=== PATIENT | female | born 1970 | race Caucasian/White ===

== ENCOUNTER → 2022-04-07 10:57 | Outpatient (BNVA) | payer BC, SELFPAY | PROVIDERS: PCP Physician Assistant Medical; Visit Provider Hospitalist | DX: J45.909 Unspecified asthma, uncomplicated (principal); Z91.048 Other nonmedicinal substance allergy status | CPT/HCPCS: 94640; 96372; J2930 ==

== ENCOUNTER 2022-04-20 15:36 | Outpatient (REF) | payer BC, SELFPAY ==
[2022-04-20 15:53] LABS: MANUAL DIFF FLAG NO
[2022-04-20 16:19] LABS: Basophils Percent Auto 0.8 % (0-2); Eosinophils Absolute Auto 0.1 X10*3/uL (0.0-0.4); Eosinophils Percent Auto 1.7 % (0-4); Hematocrit 41.5 % (37.0-47.0); Hemoglobin 13.7 g/dl (12.0-16.0); Imm Gran Abs Auto 0.01 X10*3/uL (0.00-0.03); Imm Gran Pct Auto 0.2 % (0.0-0.4); Lymphocytes Absolute Auto 1.4 X10*3/uL (1.2-4.9); Lymphocytes Percent Auto 29.2 % (20-40); Mean Corpuscular Hemoglobin 29.2 pg (27.0-33.0); Mean Corpuscular Volume 88.5 fL (80.0-98.0); Mean Platelet Volume 10.6 fL (9.4-12.3); Monocytes Absolute Auto 0.4 X10*3/uL (0.1-1.2); Monocytes Percent Auto 7.4 % (2-11); Neutrophils Absolute Auto 2.9 x10*3/uL (2.0-8.3); Neutrophils Percent Auto 60.7 % (45-73); Platelet Count 184 X10*3/uL (160-400); Red Blood Count 4.69 X10*6/uL (4.20-5.50); Red Cell Distribution Width 13.1 % (11.0-16.0); White Blood Count 4.7 X10*3/uL (4.8-10.8)
[2022-04-20 16:55] LABS: Erythrocyte Sedimentation Rate 3 MM/HR (0-20)
[2022-04-22 04:44] LABS: Immunoglobulin E 12 kU/L (<OR=114)
[2022-04-22 16:44] LABS: IgA 88 mg/dL (47-310); IgG 831 mg/dL (600-1640); IgM 96 mg/dL (50-300)
[2022-04-29 16:33] LABS: Asperg fumigatus Precip Abs NEGATIVE (NEGATIVE); Micropoly faeni Abs NEGATIVE (NEGATIVE); Pigeon serum Abs NEGATIVE (NEGATIVE); Saccharo pora viridis Abs NEGATIVE (NEGATIVE); Thermo candidus Abs NEGATIVE (NEGATIVE); Thermoa vulgaris #1 NEGATIVE (NEGATIVE)
== END 2022-04-20 15:37 | disposition home or self-care (01) ==
LOC: HO.LAB 15:36
PROVIDERS: Visit Provider Hospitalist
DX: J45.909 Unspecified asthma, uncomplicated (principal); R91.8 Other nonspecific abnormal finding of lung field; Z91.048 Other nonmedicinal substance allergy status
CPT/HCPCS: 36415; 82784; 82785; 85025; 85652; 86331; 86606; 86609

== ENCOUNTER → 2022-04-30 08:45 | Outpatient (BNVA) | payer BC, SELFPAY | PROVIDERS: PCP Physician Assistant Medical; Visit Provider Hospitalist | DX: J45.909 Unspecified asthma, uncomplicated (principal); Z91.048 Other nonmedicinal substance allergy status ==

== ENCOUNTER 2022-05-01 07:44 | Outpatient (REF) | payer BC, SELFPAY ==
--- NOTE | ~2022-05-01 | XR_ITS ---
EXAMINATION: XR chest 2V CLINICAL INFORMATION: Reason for Exam R07.89 - Other chest pain COMPARISON: Chest radiograph 01/18/2019 TECHNIQUE: 2 views of the chest FINDINGS: Clear lungs. No pneumothorax or pleural effusion. Normal cardiomediastinal silhouette. XR/XR chest 2V Impression: * Clear lungs.
--- NOTE | 2022-05-01 07:50 | ECG_ITS ---
Test Reason : chronic obstructive pulmonary disease cp Blood Pressure : / mmHG Vent. Rate : 083 BPM Atrial Rate : 083 BPM P-R Int : 142 ms QRS Dur : 082 ms QT Int : 360 ms P-R-T Axes : -47 077 066 degrees QTc Int : 423 ms Unusual P axis, possible ectopic atrial rhythm Abnormal ECG No previous ECGs available Referred By: Balwinder Greenfield Electronically Signed By:ANTHONY CLEMENT MD
== END 2022-05-01 07:45 | disposition home or self-care (01) ==
LOC: HO.XRAY 07:44
PROVIDERS: PCP Physician Assistant Medical; Visit Provider Hospitalist
DX: R07.89 Other chest pain (principal); J44.9 Chronic obstructive pulmonary disease, unspecified
CPT/HCPCS: 71046; 93005

== ENCOUNTER → 2022-07-16 13:52 | Outpatient (BNVA) | payer BC, SELFPAY | PROVIDERS: PCP Physician Assistant Medical; Visit Provider Hospitalist | DX: J45.909 Unspecified asthma, uncomplicated (principal); J40 Bronchitis, not specified as acute or chronic; Z91.048 Other nonmedicinal substance allergy status; R07.89 Other chest pain ==

== ENCOUNTER 2023-01-19 13:48 | Outpatient (AMB) | payer BC, SELFPAY ==
[2023-01-19 14:08] VITALS: PULSE 64; O2SAT 98; BMI 20.7
--- NOTE | 2023-01-19 14:08 | MHC.OFFVIS ---
Intake Vital Signs 01/19/23 14:08 Height 5 ft 6 in Weight 128 lb BMI 20.7 Pulse 64 Pulse Source Pulse Oximeter Pulse Oximetry (%) 98 Oxygen Delivery Method Room Air Intake Visit Reasons: cough/lung pain Manager Nc Required: No Allergies metronidazole [Flagyl] Allergy (Unknown, Verified 01/19/23 14:10) Rash Sulfa Drugs Allergy (Unknown, Uncoded 01/19/23 14:10) Fatigued HPI HPI Comments History of Present Illness Details The patient is a 52-year-old woman with a known history of hyper sensitivity re actions in addition to significant mold allergies who had been in her usual state health until recently a few weeks ago when she started developing worsening shortness of breath. Apparently she had to go to a different building to work at. 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 Ultimately the 1st day she felt some chest tightness and was able to feel better the next day. Subsequent the 2nd day that she when she fell the chest tightness again and I did not get any better. She became worse with significant coughing shortness of breath and chest discomfort. She felt a burning sensation in the left chest area. Therefore she went to the ER at [facility]. There she had blood work which was reassuring. In addition to that she had a chest x-ray that was abnormal and then followed up with a CT scan of the chest demonstrating significant bronchitis and mucus plugging primarily at the bases left more than right. No significant airspace disease appreciated. The patient was placed on prednisone without any significant improvement in addition to that she was given a nebulizer with albuterol. She was noticing that after the pedal she was getting worse sitting of the symptoms for the next few hours. In view of not feeling better she was referred to Pulmonary. The patient on examination was significant rhonchorous and wheezing. We did provide with Xopenex treatment which she 10 to tolerate without the adverse effects she was feeling before will phone the albuterol which is reassuring. Hopefully she does not develop them later on. In addition to that she is already on 40 mg of prednisone. She definitely needs more medications so she will receive Solu-Medrol 125 mg IM. We were able to also try to get some sputum. She did also mention that the sputum is difficult to come out but she has noted some blood in it. From the sputum sample that we provided in the office I do not appreciate any blood which is reassuring. 04/30/2022 the patient is here for a pulmonary follow-up visit. Overall she is feeling better from a respiratory status. Denies any wheezing or shortness of breath. She completed all the medicines. Unfortunately she started developing some epigastric discomfort and some chest discomfort. She felt sharp. Denied pleuritic component now is switch over to oral a burning sensation. Primarily on the upper substernal chest area. She does have some reproducible chest discomfort but she feels this different. Her burning sensation does radiate to the back. She denies any shortness of breath along with. She does have a history of cardiac disease in the family. The patient has not had recent EKG. Explained to her that she has been a lot of prednisone and this ultimately can be resulting in some esophagitis and reflux related disease. Therefore will start her omeprazole but also request an EKG. She is also going to follow up with GI. We did review all her blood work. No significant allergic reactions noted based on the normal IgE and a normal eosinophils. Her hypersensitive panel is also negative. Will set up a follow-up with Allergy immunology to assess her mold allergies that she had noted in the past. 01/19/2023 the patient is here for a sick visit. Apparently she was in her usual state health until the last few weeks when she started developing URI like symptoms. She started developing chest congestion. She went to an urgent care actually 3 days in a row because she had significant respiratory complaints. She was given a course of azithromycin. Subsequently after that she went back to her primary care doctor who gave her a course of doxycycline. After a days she is not really feeling significantly better. She is been complaining of pleuritic discomfort. She is affecting her right mid thoracic area although she does have some also some discomfort on the other side. Sometimes is even hard to take a deep breath and a cough because I is moderate in severity. The pain feels sharp. She has never had symptoms like this before. She denies any swelling of the extremities although she has never had any blood clots history either. Will go ahead and request blood work including a D-dimer at this time. It appears that her symptoms are more pleurisy. She did have a chest x-ray done which I personally reviewed demonstrating no acute issues that was done at [facility]. Therefore will have her start on low-dose course of prednisone and she will complete 8 days or doxycycline. The patient also has cough medications. If the patient is no better will request a CT scan of the chest discomfort. [facility] Medical History (Updated 01/19/23 @ 19:15 by Balwinder Greenfield MD) Chest discomfort Allergy to mold Bronchitis Asthma Social History (Updated 04/07/22 @ 11:06 by VALARIE Naik) Patient Tobacco Use Status: Never used Tobacco Review of Systems Const Reports fatigue and Denies fever(s) Eyes Denies change in vision ENT Reports nasal congestion Card Reports chest pain, Denies dyspnea and Denies dyspnea on exertion Resp Denies chest congestion, Reports cough, Denies hemoptysis, Reports pain on inspiration, Reports pain with cough, Denies dyspnea, Denies dyspnea on exertion, Denies stridor and Denies wheezing GI Denies abdominal pain Musc Reports no additional complaints Skin/Breast Denies rash Neuro Reports no additional complaints Endo Reports fatigue Gen/Lymph Denies lymphadenopathy Aller/Immun Denies wheezing Physical Exam Vital Signs: Last Vital Signs Pulse 64 01/19/23 14:08 Pulse Ox 98 01/19/23 14:08 Oxygen Delivery Method Room Air 01/19/23 14:08 BMI result Body Mass Index 20.7 Const General: comfortable HEENT Head: Yes normocephalic Neck Neck: Yes supple Chest Chest palpation & inspection: normal inspection of the chest Resp Effort & Inspection: normal respiratory effort Auscultation: no crackles, no rales, no rhonchi, no wheezes and diminished lung sounds Cardio Rate: regular rate Rhythm: regular rhythm Heart sounds: S1 normal heart sound present and S2 normal heart sound present GI Palpation (GI): Soft to palpation Skin General skin exam: no rashes or lesions noted Extrem General: Yes no clubbing, cyanosis or edema Assessment & Plan Assessment & Plan (1) Chest discomfort: Comment: pleuritic chest pain L>>R Code(s): R07.89 - Other chest pain (2) Asthma: Code(s): J45.909 - Unspecified asthma, uncomplicated Qualifiers: Asthma complication type: uncomplicated Asthma persistence: intermittent Asthma severity: mild Qualified Code(s): J45.20 - Mild intermittent asthma, uncomplicated (3) Bronchitis: Code(s): J40 - Bronchitis, not specified as acute or chronic (4) Allergy to mold: Code(s): Z91.048 - Other nonmedicinal substance allergy status Plan complete Doxycycline x 8 days start prednisone taper Bloodwork including ddimer If CP persistent will require a CT chest Nebs with xopenex as needed Acapella valve for CPT as needed F/U in 2-3 months depending on response to therapy Orders: Orders Complete Blood Count Auto Diff Today R07.89 - Other chest pain Erythrocyte Sedimentation Rate Today R07.89 - Other chest pain D Dimer High Sensitivity Today R07.89 - Other chest pain Basic Metabolic Panel Today R07.89 - Other chest pain Medications: New prednisone PO daily; Take 2 tabs daily x 5 days, then 1 tab daily x 5 days 10 days 15 tabs 0RF Coding Level of Care Code Est Pt Level 4 (05205) Diagnoses Chest discomfort R07.89 Mild intermittent asthma without complication J45.20 Asthma complication type: uncomplicated Asthma persistence: intermittent Asthma severity: mild Bronchitis J40 Allergy to mold Z91.048 Time Spent (min) 17
== END 2023-01-19 14:42 | disposition home or self-care (01) ==
PROVIDERS: PCP Physician Assistant Medical; Visit Provider Hospitalist
DX: R07.89 Other chest pain (principal); J45.20 Mild intermittent asthma, uncomplicated; J40 Bronchitis, not specified as acute or chronic; Z91.048 Other nonmedicinal substance allergy status
CPT/HCPCS: 99214

== ENCOUNTER 2023-01-19 13:48 | Outpatient (REF) | payer BC, SELFPAY ==
[2023-01-19 14:56] LABS: MANUAL DIFF FLAG NO
[2023-01-19 15:48] LABS: Basophils Absolute Auto 0.1 X10*3/uL (0.0-0.2); Basophils Percent Auto 0.9 % (0-2); Eosinophils Absolute Auto 0.1 X10*3/uL (0.0-0.4); Eosinophils Percent Auto 2.4 % (0-4); Hematocrit 40.3 % (37.0-47.0); Hemoglobin 13.2 g/dl (12.0-16.0); Imm Gran Abs Auto 0.01 X10*3/uL (0.00-0.03); Imm Gran Pct Auto 0.2 % (0.0-0.4); Lymphocytes Absolute Auto 1.8 X10*3/uL (1.2-4.9); Lymphocytes Percent Auto 33.3 % (20-40); Mean Corpuscular HGB Conc 32.8 g/dl (31.0-35.0); Mean Corpuscular Hemoglobin 29.1 pg (27.0-33.0); Mean Platelet Volume 11.2 fL (9.4-12.3); Monocytes Absolute Auto 0.4 X10*3/uL (0.1-1.2); Monocytes Percent Auto 7.1 % (2-11); Neutrophils Percent Auto 56.1 % (45-73); Platelet Count 202 X10*3/uL (160-400); Red Blood Count 4.53 X10*6/uL (4.20-5.50); Red Cell Distribution Width 12.8 % (11.0-16.0); White Blood Count 5.4 X10*3/uL (4.8-10.8)
[2023-01-19 15:55] LABS: D Dimer High Sensitivity < 150 NG/ML
[2023-01-19 16:27] LABS: Erythrocyte Sedimentation Rate 5 MM/HR (0-20)
[2023-01-19 16:48] LABS: Anion Gap 12 (12-20); Blood Urea Nitrogen 13 mg/dL (9-16); Calcium 9.3 mg/dL (8.4-10.2); Carbon Dioxide 25 mmol/L (22-29); Chloride 108 mmol/L (96-108); Estimated Glomerular Filt Rate > 60; Glucose Random 77 mg/dL (60-115); Potassium 4.5 mmol/L (3.3-5.1); Sodium 140 mmol/L (135-145)
== END 2023-01-19 13:49 | disposition home or self-care (01) ==
LOC: HO.LAB 13:48
PROVIDERS: PCP Physician Assistant Medical; Visit Provider Hospitalist
DX: R07.89 Other chest pain (principal); J45.20 Mild intermittent asthma, uncomplicated; Z91.048 Other nonmedicinal substance allergy status
CPT/HCPCS: 36415; 80048; 85025; 85379; 85652

== ENCOUNTER 2023-11-18 08:20 | Outpatient (AMB) | payer BC, SELFPAY ==
[2023-11-18 08:28] VITALS: BP 139/92; PULSE 91; O2SAT 100; BMI 20.5
--- NOTE | 2023-11-18 08:28 | MHC.OFFVIS ---
Vital Signs 11/18/23 08:28 Height 5 ft 6 in Weight 127 lb BMI 20.5 BP 139/92 H Blood Pressure Location Rt brachial Position Sitting Pulse 91 Pulse Source Pulse Oximeter Pulse Oximetry (%) 100 Oxygen Delivery Method Room Air Intake Visit Reasons: Rt arm pain/numbness after contrast Intake Note: Pain today 4/10 Grain Operator Required: No Accompanied by: Self / Same As Patient Allergies metronidazole [Flagyl] Allergy (Unknown, Verified 11/18/23 08:28) Rash Sulfa Drugs Allergy (Unknown, Uncoded 01/19/23 14:10) Fatigued HPI Comments Details: Marcia is a very pleasant 53-year-old female who presents to the office today for evaluation management of her right arm pain Patient underwent MRI with IV contrast 2 months ago with repeat MRI with contrast 1 month ago After the 1st MRI she developed pain, numbness, tingling and hot/cold sensations of the right arm from the elbow into the hand. pain significantly worsened after the 2nd MRI with contrast For the MRI an IV was inserted in the right antecubital, she was positioned prone for 40 minutes where pressure was placed directly on IV and her antecubital fossa After the MRI was completed she noticed the alteration in sensation and aching pain in her right elbow Pain today is rated as a 4/10, constant Pain at Olecranon with radiation down the arm across the top of the hand and up the medial aspect of the arm to the axilla Denies pain in the neck Patient has been taking ibuprofen without improvement of her symptoms. Heat helps for a short amount of time. She has not tried physical therapy, chiropractor, acupuncture, massage or injections. She was given gabapentin by her primary care doctor but she has it started. She read the insert and is nervous because of all the potential side effects therefore she has decided to manage the pain without prescription medication. She states it is tolerable at this time and she will consider starting the medication if he gets worse. In terms of muscle damage condition is described as aching, tingling, dull, numb, pins and needles Pain is negatively impacting patient's general activity, sleep PFSH Medical History (Updated 11/18/23 @ 09:13 by Swathi Echevarria) Liver lesion History of breast cancer Chest discomfort Allergy to mold Bronchitis Asthma Surgical History (Updated 11/18/23 @ 08:47 by Swathi Echevarria) H/O myringotomy History of lumpectomy of left breast Social History (Updated 04/07/22 @ 11:06 by VALARIE Naik) Patient Tobacco Use Status: Never used Tobacco Review of Systems Const All systems reviewed & are unremarkable except as noted in HPI and below Physical Exam Vital Signs: Last Vital Signs Pulse 91 11/18/23 08:28 BP 139/92 H 11/18/23 08:28 Pulse Ox 100 11/18/23 08:28 Oxygen Delivery Method Room Air 11/18/23 08:28 BMI result Body Mass Index 20.5 General: awake, alert, oriented. Answers questions appropriately. Fully engaged in examination. Skin: warm, dry, intact HEENT: Normocephalic. Hearing intact. Cardiac: External chest normal in appearance. Respiratory: No cough, audible wheezing or stridor. Abdomen: without gross distension. MS: No obvious swelling or deformities. Nontender midline cervical vertebrae cervical paraspinal muscles. Cervical range motion intact Right arm: Tenderness to palpation over right olecranon. Light touch sensation intact. Bilateral upper extremity strength equal, 5/5. Range of motion intact. No muscle atrophy. No skin changes. No hair loss Neurological: Oriented to person, place, time and situation. Thought process intact. No gait abnormalities appreciated. Psychiatric: Appropriate mood and affect. Good judgment and insight. Assessment & Plan Assessment & Plan (1) Arm paresthesia, right: Code(s): R20.2 - Paresthesia of skin Category: Medical Plan Marcia is a very pleasant 53-year-old female who presented to the office today for evaluation and management of her right arm paresthesia EMG ordered for evaluation Continue with plan for gabapentin as prescribed by PCP if pain worsens All questions and concerns were answered, patient agrees with the plan. Follow up after EMG, sooner if needed Orders: Orders NE electromyogram (EMG) Today R20.2 - Paresthesia of skin Coding Level of Care Code New Pt Level 4 (53621) Complex EM visit Add On G2211 Diagnoses Arm paresthesia, right R20.2
== END 2023-11-18 08:56 | disposition home or self-care (01) ==
PROVIDERS: PCP Internal Medicine; Visit Provider Registered Nurse Emergency
DX: R20.2 Paresthesia of skin (principal)
CPT/HCPCS: 99204

== ENCOUNTER → 2023-11-18 08:20 | Outpatient (BNVA) | payer BC, SELFPAY | PROVIDERS: PCP Internal Medicine; Visit Provider Registered Nurse Emergency ==

== ENCOUNTER 2024-02-22 06:12 | Outpatient (REF) | payer BC, SELFPAY ==
--- NOTE | 2024-02-22 05:48 | EMG_ITS ---
Right median and ulnar motor and sensory studies were performed. Right radial sensory and median and lateral antecubital brachial sensory studies were performed and paraspinal muscles were tested with a needle. IMPRESSION: 1. Mild right median neuropathy across carpal tunnel. 2. Mild right ulnar nerve slowing across elbow. MD ALVARO David/SUMANTH / [id number]
--- OUTSIDE RECORDS SUMMARY | 2024-02-22 06:16 | XMS_ITS | Data Portability ---
Author Organization [facility], [address] [place] [address] Care Team Providers Care Intermediate Manager Name Role Phone JARVIS MOYA Primary Care Provider Assessment No assessment recorded. Plan of Treatment Reminders Order Date Submit Date Provider Last Modified By Organization Details Last Modified Time Details Appointments None recorded. Lab rapid SARS CoV 2 Ag, QL IA, respiratory specimen 2022 023 [facility], [address] [place] [address], [address], 3 09:20:27 rapid strep group A, throat 2022 023 [email or web address] [facility], [address] [place] [address], [address], 3 09:20:27 urinalysis, dipstick 2022 023 [email or web address], [address] [place] [address], [address], 3 09:40:41 test, urine 2022 023 [email or web address], [address] [place] [address], [address], 3 09:40:42 culture, urine 2022 023 [place] [facility], [address] [place], [address], 3 20:06:21 vaginal pathogens panel, ORION+probe, vaginal fluid 2022 023 [place] [facility] ([facility]), [address] [place], [address], 3 10:11:21 Referral None recorded. Procedures None recorded. Surgeries None recorded. Imaging None recorded. Medication Orders amoxicillin 875 mg-potassiu m clavulanate 125 mg tablet 2022 023 [id number] [address] [place], [address], 3 09:03:10 loratadine 10 mg tablet 2022 023 [id number] [address] [place], [address], 3 09:03:14 albuterol sulfate 2.5 mg/3 mL (0.083 %) solution for nebulizatio n 2022 023 [email or web address] Not available 3 09:03:09 ipratropium bromide 0.02 % solution for inhalation 2022 023 [email or web address] Not available 3 09:03:04 Macrobid 100 mg capsule 2022 023 [id number] [address] [place], [address], 3 09:40:41 Patient TargetsNo targets recorded. Patient Instructions Encounter Date Encounter Id Patient Instructions Last Modified By Organization Details Last Modified Time 03/14/2022 [id number] Acute bronchitis is a common clinical condition characterized by an acute onset but persistent cough, with or without sputum production. It is typically self-limited, resolving within one to three weeks. Symptoms result from inflammation of the lower respiratory tract and are most frequently due to viral infection. Treatment is focused on patient education and supportive care. Antibiotics are not needed for the great majority of patients with acute bronchitis but are greatly overused for this condition. Reducing antibiotic use for acute bronchitis is a national and international health care priority. In most patients, the cough persists for 1 to 3 weeks, with a average duration of 18 days. The cough may be associated with either purulent or nonpurulent sputum production The presence of purulent sputum is a nonspecific finding and does not appear to be predictive of bacterial infection or that antibiotics are needed. For the great majority of patients, use of antibiotics does not hasten recovery or prevent complications but puts patients at increased risk of adverse effects including potentially severe complications such as Clostridioides difficile infection and anaphylaxis. Non-Pharmacological treatment for coughin. Throat lozenges 2. Hot tea 3. Honey 4. Smoking cessation 5. Avoidance of secondhand smoke. Pharmacological Treatment: 1. Robatussin or Guafenasin 2. Antihistamines 3. Dextromethoraphen I would plan on being seen again if any of the following symptoms develop: 1. Fever (100.5) 2. Shortness of breath 3. Wheezing 4. Worsening Cough. I would go to the ER if you develop: 1. Severe Shortness of breath 2. Chest Pain 3. Wheezing 4. Coughing up Blood [email or web address] Not available 03/14/2022 10:14:56 08/28/2022 [id number] bacterial vagino sis: care instructions Not available 08/28/2022 09:40:39 We recommend you get a repeat urinalysis in 2 weeks to ensure that any abnormalities have resolved. If urine abnormalities persist, you will likely need further testing or treatment. We will contact you within 3 to 5 days with the results of your lab test. If you have not heard back from us within that time frame, please feel free to contact our office regarding your results. Go to the Emergency Department immediately if your symptoms worsen or if you develop new symptoms that concern you. Drink plenty of fluids You should follow-up with your PCP in 4-5 days, or at any time if your condition does not improve or worsens. Any acute change should prompt a visit to the nearest Emergency Department. [email or web address] Not available 08/28/2022 09:40:02 -Reviewed the va rious causes of vaginal problems. Reviewed good vulvar/vaginal hygiene and ways to reduce symptoms. Advised to call if treatment is not helpful or if symptoms persist or recur. -Do not wear tight fitting clothes. Do not have sex until your symptoms are gone. Do not use Douches or other irritating products in your vagina as this can make the symptoms worse. - Use condoms for all sexual activity. - If you develop severe back pain or pelvic/abdominal with nausea, fevers, and vomiting you need to go to Emergency room immediately - I recommend complete treatment fully before engaging in intercourse, if you are waiting for a STD test I do not recommend engaging in intercourse until test results have returned. Not available 08/28/2022 09:39:52 Reason for Referral None Reported. Results Created Date Observation Date Name Description Value Unit Range Abnormal Flag Note LastModifiedBy Organization Detail LastModifiedTime 03/14/1903/14/2022 rapid SARS CoV 2 Ag, QL IA, respi rator y speci men Unknown Analyte Normal =Negat cheryl Not Available [address], [address], 03/14/2022 08:40:18 03/14/19 23 03/14/2022 rapid SARS CoV 2 Ag, QL IA, respi rator y speci men Unknown Analyte negati ve Not Available [address], [address], 03/14/2022 08:40:18 03/14/19 23 03/14/2022 rapid strep group A, throa t Unknown Analyte Normal = Negati ve Not Available [address], [address], 03/14/2022 08:34:28 03/14/19 23 03/14/2022 rapid strep group A, throa t Unknown Analyte negati ve Not Available [address], [address], 03/14/2022 08:34:28 08/29/19 23 08/30/2022 URINE CULTU RE, ROUTI NE urine culture, routine FINAL REPORT Not Available [facility] ([facility]) [address] [facility], [place], [address], 08/30/2022 20:06:21 08/29/19 23 08/30/2022 URINE CULTU RE, LAURA CUBA result 1 NO GROWTH Not Available [facility] ([facility]) [address] [facility], [place], [address], 08/30/2022 20:06:21 08/29/19 23 08/30/2022 NUSWA B VAGIN ITIS PLUS (VG+) atopobium vaginae LOW - 0 score Not Available [facility] ([facility]) [address] [facility], [place], [address], 08/31/2022 10:11:21 08/29/19 23 08/30/2022 NUSWA B VAGIN ITIS PLUS (VG+) bvab 2 LOW - 0 score Not Available [facility] ([facility]) [address] [facility], [place], [address], 08/31/2022 10:11:21 08/29/19 23 08/30/2022 NUSWA B VAGIN ITIS PLUS (VG+) megasphaera 1 LOW - 0 score Calcu late total score by june g the 3 indiv idual bacte rial vagin osis (BV) marke r score s toget her. Total score is inter prete d as follo ws: Total score 0-1: Indic ates the absen ce of BV. Total score 2: Indet ermin ate for BV. Addit ional clini uvaldo data shoul d be evalu ated to estab daryl a diagn osis. Total score 3-6: Indic ates the prese nce of BV. This test was devel oped and its perfo rmanc e wilfrido cteri stics deter mined by [facility]. It has not been clear ed or appro yosvany by the Food and Drug Admin istra tion. Not Available [facility] ([facility]) [address] [facility], [place], [address], 08/31/2022 10:11:21 08/29/19 23 08/30/2022 NUA B VAGIN ITIS PLUS (VG+) boubacar albicans, ORION NEGATI VE negati ve Not Available [facility] ([facility]) [address] [facility], [place], [address], 08/31/2022 10:11:21 08/29/19 23 08/30/2022 NUA B VAGIN ITIS PLUS (VG+) boubacar glabrata, ORION NEGATI VE negati ve Not Available [facility] ([facility]) [address] [facility], [place], [address], 08/31/2022 10:11:21 08/29/19 23 08/31/2022 NUA B VAGIN ITIS PLUS (VG+) trich vag by ORION NEGATI VE negati ve Not Available [facility] ([facility]) [address] [facility], [place], [address], 08/31/2022 10:11:21 08/29/19 23 08/31/2022 NUA B VAGIN ITIS PLUS (VG+) chlamydia trachomatis, ORION NEGATI VE negati ve Not Available [facility] ([facility]) [address] [facility], [place], [address], 08/31/2022 10:11:21 08/29/19 23 08/31/2022 NUA B VAGIN ITIS PLUS (VG+) neisseria gonorrhoeae, ORION NEGATI VE negati ve Not Available [facility] ([facility]) [address] [facility], [place], [address], 08/31/2022 10:11:21 08/29/19 23 08/28/2022 pregn micah test, urine Unknown Analyte negati ve Not Available [address], [address], 08/28/2022 09:37:30 08/29/1908/28/2022 urina lysis , dipst ick Unknown Analyte Normal = light yellow Not Available [address] [place] [address], [place], [address], 08/28/2022 09:09:11 08/29/19 23 08/28/2022 urina lysis , dipst ick Unknown Analyte Normal = clear Not Available [facility] [address], [place], [address], 08/28/2022 09:09:11 08/29/1908/28/2022 urina lysis , dipst ick Unknown Analyte Normal = negati ve Not Available [facility] [address], [place], [place], [address], 08/28/2022 09:09:11 08/29/19 23 08/28/2022 urina lysis , dipst ick Unknown Analyte Normal = Negati ve Not Available [facility] [address], [place], [place], [address], 08/28/2022 09:09:11 08/29/19 23 08/28/2022 urina lysis , dipst ick Unknown Analyte Normal = Negati ve Not Available [facility] [address], [place], [place], [address], 08/28/2022 09:09:11 08/29/19 23 08/28/2022 urina lysis , dipst ick Unknown Analyte Normal = 1.010, 1.015, 1.020 Not Available [facility] [address], [place], [place], [address], 08/28/2022 09:09:11 08/29/19 23 08/28/2022 urina lysis , dipst ick Unknown Analyte Normal = Negati ve Not Available [facility] [address], [place], [address], 08/28/2022 09:09:11 08/29/19 23 08/28/2022 urina lysis , dipst ick Unknown Analyte Normal = 6.5, 7.0, 7.5, 8.0 Not Available [facility] [address], [place], [address], 08/28/2022 09:09:11 08/29/19 23 08/28/2022 urina lysis , dipst ick Unknown Analyte Normal = Negati ve Not Available [address] [place] [address], [place], [address], 08/28/2022 09:09:11 08/29/19 23 08/28/2022 urina lysis , dipst ick Unknown Analyte Normal = 0.2, 1.0 Not Available [address], [place], [address], 08/28/2022 09:09:11 08/29/19 23 08/28/2022 urina lysis , dipst ick Unknown Analyte Normal = Negati ve Not Available [facility] [address], [place], [address], 08/28/2022 09:09:11 08/29/19 23 08/28/2022 urina lysis , dipst ick Unknown Analyte Normal = Negati ve Not Available [address], [place], [address], 08/28/2022 09:09:11 08/29/19 23 08/28/2022 urina lysis , dipst ick Unknown Analyte Light Yellow Not Available [address] [place] [address], [place], [address], 08/28/2022 09:09:11 08/29/19 23 08/28/2022 urina lysis , dipst ick Unknown Analyte Clear Not Available david [address], [place], [address], 08/28/2022 09:09:11 08/29/19 23 08/28/2022 urina lysis , dipst ick Unknown Analyte Negati ve Not Available pato fair[facility] [address], [place], [address], 08/28/2022 09:09:11 08/29/19 23 08/28/2022 urina lysis , dipst ick Unknown Analyte Negati ve Not Available pato fairbanks [address], [place], [address], 08/28/2022 09:09:11 08/29/19 23 08/28/2022 urina lysis , dipst ick Unknown Analyte Negati ve Not Available pato [address], [place], [address], 08/28/2022 09:09:11 08/29/19 23 08/28/2022 urina lysis , dipst ick Unknown Analyte 1.020 Not Available david [address], [place], [address], 08/28/2022 09:09:11 08/29/19 23 08/28/2022 urina lysis , dipst ick Unknown Analyte Negati ve Not Available pato fairbanks [address], [place], [address], 08/28/2022 09:09:11 08/29/19 23 08/28/2022 urina lysis , dipst ick Unknown Analyte 6.0 Not Available [address], [place], [place], [address], 08/28/2022 09:09:11 08/29/19 23 08/28/2022 urina lysis , dipst ick Unknown Analyte Negati ve Not Available [address], [address], 08/28/2022 09:09:11 08/29/19 23 08/28/2022 urina lysis , dipst ick Unknown Analyte 0.2 E.U./d L Not Available [address], [address], 08/28/2022 09:09:11 08/29/1908/28/2022 urina lysis , dipst ick Unknown Analyte Negati ve Not Available [address], [address], 08/28/2022 09:09:11 08/29/19 23 08/28/2022 urina lysis , dipst ick Unknown Analyte Negati ve Not Available [address], [address], 08/28/2022 09:09:11 Result Notes None recorded. Problems Name Problem SNOMED Code Status Onset Date Resolution Date Notes Provider Name and Address Organization Details Recorded Time Malignant neoplastic disease 864906640 Active 023 [facility] 3 08:37:52 Problem Notes None recorded. Procedures Surgical History Date Name Laterality Status Provider Name and Address Organization Details Recorded Time Nebulizer Treatment completed Tangela Rodney PA - [facility] 03/14/2022 10:05:59 Imaging Results None recorded. Procedure Notes None recorded. Medical Equipment None Reported. Allergies Allergen ID Allergen Name Allergen Category Reaction Reaction Severity Criticality Documentation Date Start Date Code Code System Note Provider Name and Address Organization Details Recorded Time 072899 mold extract environme nt Not available Not available Not available 03/14/2022 21365 8 RxNorm AARON wells PA - [facility] 3 08:36:07 571937 sulfameth oxazole / trimethop rim medicatio n hives Not available Not available 08/28/2022 99080 RxNorm CHRISTIAN MONTALVO [facility] wells [facility] 3 09:01:45 366231 Flagyl medicatio n hives Not available Not available 08/28/202297688 6 RxNorm CHRISTIAN MONTALVO [facility] 3 09:01:55 Medications Name Sig Start Date Stop Date Status Note LastModified by Organization Details LastModified Time amoxicillin 500 mg capsule TAKE 1 CAPSULE EVERY 8 HOURS BY ORAL ROUTE FOR 5 DAYS. 03/14 completed Not Available Not Available Not Available doxycycline hyclate 100 mg capsule TAKE 1 CAPSULE (ORAL) 2 TIMES PER DAY FOR 10 DAYS FOR INFECTION 03/14 completed Not Available Not Available Not Available albuterol sulfate 2.5 mg/3 mL (0.083 %) solution for nebulizatio n Inhale 3 mL by nebulizat ion route. 08/28 completed Not Available Not Available Not Available azithromyci n 250 mg tablet 03/14 completed Not Available Not Available Not Available Macrobid 100 mg capsule Take 1 capsule every 12 hours by oral route with meals for 7 days. 2022 active Not Available Not Available Not Avai lable ciclopirox 8 % topical solution APPLY TO AFFECTED NAILS AND SURROUNDI NG SKIN NIGHTLY. REMOVE WITH ALCOHOL EVERY 7 DAYS 03/14 completed Not Available Not Available Not Available benzonatate 100 mg capsule 03/14 completed Not Available Not Available Not Available clindamycin 2 % vaginal cream INSERT 1 APPLICATO RFUL VAGINALLY EVERY DAY AT BEDTIME FOR 7 DAYS 03/14 completed Not Available Not Available Not Available codeine 10 mg-guaifene sin 100 mg/5 mL oral liquid TAKE 1 OR 2 TEASPOONF ULS ( 5ML - 10ML'S ) BY MOUTH EVERY 4 TO 6 HOURS NEEDED. 03/14 completed Not Available Not Available Not Available albuterol sulfate HFA 90 mcg/actuati on aerosol inhaler INHALE 1 TO 2 PUFFS BY MOUTH EVERY 4 TO 6 HOURS NEEDED 03/14 completed Not Available Not Available Not Available ipratropium bromide 0.02 % solution for inhalation Inhale 2.5 mL by inhalatio n route. 08/28 completed Not Available Not Available Not Available Clenpiq 10 mg-3.5 gram-12 gram/160 mL oral solution TAKE 160 ML BY MOUTH TWICE A DAY DIRECTED FOLLOW INSTRUCTI ONS PROVIDED BY OFFICE 03/14 completed Not Available Not Available Not Available Paxlovid 300 mg (150 mg x 2)-100 mg tablets in a dose pack PLEASE SEE ATTACHED FOR DETAILED DIRECTION S 03/14 completed Not Available Not Available Not Available Vitals Date Recorded Body height Body mass index (BMI) Body weight Oxygen saturation Oxygen saturation in Arterial blood by Pulse oximetry Heart rate Respiratory rate Body temperature Systolic blood pressure Diastolic blood pressure Provider Name and Address Organization Details Last Updated DateTime 3 167.64 cm 20.5 kg/m2 59972.2 3 g 100 % 100 % 76 /min 16 /min 97.8 [degF] 128 mm[Hg] 90 mm[Hg] CHRISTIAN MONTALVO [place] - [facility] 3 09:06:47 Date Recorded Body height Body mass index (BMI) Body weight Body temperature Respiratory rate Oxygen saturation Oxygen saturation in Arterial blood by Pulse oximetry Heart rate Systolic blood pressure Diastolic blood pressure Provider Name and Address Organization Details Last Updated DateTime 3 167.64 cm 20.7 kg/m2 38348.8 2 g 97.8 [degF] 18 /min 98 % 98 % 72 /min 118 mm[Hg] 78 mm[Hg] AARON DAIGLE [place] - [facility] 3 08:39:39 Social History Question Answer Notes LastModified by Organizat ion Details LastModified Time What Is Your Level Of Alcohol Consumption? Occasional Information not available 03/14/2022 Are You Currently Employed? Yes Information not available 03/14/2022 Have You Had Direct Contact, Or Contact During Intimacy, With Monkeypox Rash, Scabs, Or Body Fluids From A Person With Monkeypox? No Information not available 03/14/2022 Do You Use Any Illicit Or Recreational Drugs? No Information not available 03/14/2022 Have You Recently Traveled Abroad? No Information not available 03/14/2022 Are You Currently In School? No Information not available 03/14/2022 Do You Or Have You Ever Used Any Other Forms Of Tobacco Or Nicotine? No Information not available 03/14/2022 Sex: Unknown Functional Status None recorded. Mental Status None recorded. Family History Relationship Description Onset Age of this Age Resolved Age Notes LastModified by Organization Details LastModified Time Father No current problems or disability Not available 05/2022 08:36:45 Mother No current problems or disability Not available 05/2022 08:36:45 Medical History No medical history recorded. Gynecological HistoryNo gynecological history recorded. Obstetrics History GPAL:G 0 P 0 0 0 0 Immunizations Vaccine Type Date Status Note Provider Nam e and Address Organization Details Recorded Time Influenza, MDCK, quadrivalent, PF 11/03/2021 completed AARON DAIGLE null, PA - [facility] 03/14/2022 08:35:54 zoster recombinant 07/18/2021 completed AARON DAIGLE null, PA - [facility] 03/14/2022 08:35:54 zoster recombinant 12/17/2021 completed AARON DAIGLE null, PA - [facility] 03/14/2022 08:35:54 COVID-19, mRNA, LNP-S, PF, 100 mcg/0.5mL dose or 50 mcg/0.25mL dose 04/03/2020 completed AARON DAIGLE null, PA - [facility] 03/14/2022 08:35:54 COVID-19, mRNA, LNP-S, PF, 100 mcg/0.5mL dose or 50 mcg/0.25mL dose 05/01/2020 completed AARON wells, PA - [facility] 03/14/2022 08:35:54 COVID-19, mRNA, LNP-S, PF, 100 mcg/0.5mL dose or 50 mcg/0.25mL dose 12/20/2020 completed AARON GOODHIND null, PA - [facility] 03/14/2022 08:35:54 Influenza, split virus, quadrivalent, PF 10/18/2020 completed AARON wells, PA - [facility] 03/14/2022 08:35:54 Influenza, split virus, quadrivalent, PF 12/22/2019 completed AARON wells, PA - [facility] 03/14/2022 08:35:54 Past Encounters Encounter ID Performer Location Encounter Start Date Encounter Closed Date Diagnosis/Indication Diagnosis SNOMED-CT Code Diagnosis ICD10 Code Diagnosis Note [id number] [facility] [address] [place] [address] 06/17/2020 11:16:08 06/17/2020 11:47:14 [id number] [facility] [address] [place] [address] 08/25/2019 08:03:01 08/25/2019 08:42:52 [id number] [facility] [address] [place] [address] 12/31/2017 08:54:59 12/31/2017 09:52:09 [id number] [facility] [address] [place] [address] 02/12/2019 08:06:26 02/12/2019 08:47:36 [id number] [address] [place] [address] 07/08/2021 19:12:28 07/08/2021 20:06:30 [id number] [facility]ON [facility] [address] [place] [address] 03/14/2022 08:12:36 03/14/2022 10:15:32 Exposure to SARS-CoV-2 524795287 Z20.822 Rapid COVID NEGATIVE Acute pharyngitis 681353 003 J02.9 RAPID STREP NEGATIVE Cough 82960092 R05.9 Acute sinusitis 24664472 J01.90 [id number] [place]ipe [place] [facility] [address] [place] [address] 08/28/2022 08:06:46 08/28/2022 09:53:25 Acute urinary tract infection 659623028 N39.0 Acute vaginitis 32394140 N76.0 Health Concerns Section Related Observation LastModified by Organization Detai ls LastModified Time None Recorded Concern Status LastModified by Organization Details LastModified Time None Recorded Advance Directives Directive None Recorded Payers Encounter Date Sequence Insurance Name Policy Number Policy Pate Covered Member ID Pate Member ID Guarantor Name 08/25/2019 1 [place] [id number] 1 Marcia M Allie [id number] 2M Marcia Allie 06/17/2020 1 [place] [id number] 1 Marcia M Allie [id number] 2M Marcia Allie 07/08/2021 1 [place] [id number] 1 Marcia M Allie [id number] 2M Marcia Allie 03/14/2022 1 [place] [id number] 1 Marcia M Allie [id number] 2M Marcia Allie 08/28/2022 1 [place] [id number] 1 Marcia M Allie [id number] 2M Marcia Allie Notes Date Note Type Note Provider Name and Address Organization Details Recorded Time 3 text/html Sore throatReported bypatient.Source of patient informationInformation obtained from patient; Patient arrived at Urgent Care ambulatory Location:throat Severity:moderate Quality:hurts to swallow Onset/Timin days Associated Symptoms:no cough; no wheezing; no vomiting; No hoarseness;yellow sputum;shortness of breath;chest congestion;sinus pain/ congestion;nausea Context:sick contactNotes:The patient states started on Wednesday and has progressively worsening. Coughing is terrible she is not able to sleep. Is bring up yellow mucous at times. She states sleeping sitting up. She has tried OTC without any relief. Sick contacts with her step daughters family. The patient reports that her facial discomfort is worsening on the right side. Feels like fluid in the right ear. No history of asthma or COPD. She states has an ache in the back on the right side. Strong history of bronchitis due to mold exposures in the past. Pneumonia as a child. DONELL NEGRON [address] [place], [address], [place] [facility] 03/14/2022 10:15:29 3 text/html Urinary Complaint FemaleReported bypatient.source of patient informationInformation obtained from patient; Patient arrived at Urgent Care ambulatory UTI Symptoms:no blood in the urine; no pain during urination; no vaginal discharge; no urgency; no pain in the flank; no fever/chills; no incontinence; no recurrent UTI; no known exposure to STD;urinary frequency;abdominal pain Severity:mild Duration:3 days Modifying Factors:nothing gives reliefNotes:frequency and urgency x 3 day. denies any fever or fever with chills, denies any History of renal stone or bladder issues. frequency and urgency x 3 day. denies any fever or fever with chills, denies any History of renal stone or bladder issues. Felipe Jackson NP [address] [facility] [place], [address], [employer] [facility] 08/28/2022 09:42:08 OBGyn Episode No OBEpisode recorded.
--- OUTSIDE RECORDS SUMMARY | 2024-02-22 06:16 | XMS_ITS | Patient Health Record ---
[facility] Address [address] [place] [address] Care Team Providers Care Copy Editor Name Role Phone Oliver Mullen MD Primary Care Provider Unavail Jose Yeh Unavailable [phone] Allergies Allergen (clinical drug ingredient) Drug/Non Drug Allergy documented on EMR Reaction Allergy Type Onset Date Status sulfamethoxazole / trimethoprim Bactrim rash Drug Allergy Active metronidazole Flagyl Unknown Drug Allergy Act cheryl Septra Unknown Drug Allergy Active Reason For Referral No Information Medications Medication SIG (Take, Route, Frequency, Duration) Notes Start Date End Date Status Diflucan 200 MG 1 tablet Orally once weekly for as needed 08/26/2018 Not-Taking Methylprednisolone N ot-Taking Clotrimazole-Betamethasone 1-0.05 % 1 application to affected area Externally Twice a day to affected areas on feet for 30 days 10/03/2020 Active Night Splint AFO - L1930 as directed 05/28/2022 Active Physical Therapy . . . 2-3x/week for 3-4 weeks 05/28/2022 Active Diflucan 100 MG 1 tablet Orally qd for 10 day(s) 10/03/2020 Not-Taking Azithromycin 250 MG 2 tablets on the first day, then 1 tablet daily for 4 days Orally Once a day for 5 day(s) Not-Taking Immunizations Vaccine Route Administration Date Status Comme nts COVID-19 Moderna Vaccine Unknown 05/01/2020 Administere d 1st 03/12/2020 Social History Tobacco Use: Social History Observation Description Date Details (start date - stop date) Never Smoker NA - NA Tobacco Use/Smoking Question Answer Notes Are you a: nonsmoker Additional Findings: Tobacco Non-User Current no n-smoker Alcohol Screen Question Answer Notes Did you have a drink containing alcohol in the p ast year? Yes Points 0 Interpretation Negative Tobacco use other than smoking: Question Answer Notes Are you an other tobacco user? No Problems Problem Type SNOMED Code ICD Code Onset Dates Problem Status W/U Status Risk Notes Problem Acquired hallux valgus (70957798) Hallux valgus (acquired), left foot (M20.12) Active confirmed Problem Acquired hallux valgus (50265614) Hallux valgus (acquired), right foot (M20.11) Active confirmed Plan Of Treatment Pending Test Test Name Order Date *Liver Function Test (LFT) 08/26/2018 X ray : Foot, left 3V 05/28/2022 Insurance Providers Payer Name Payer Address Payer Phone Subscriber Number Group Number Insured Name Patient Relationship to Insured Coverage Start Date Coverage End Date [facility] [employer] [address] [place] [address] [phone] [id number] Marcia Kelley Self - patient is the insured Medical (General) History Medical History History ICD Code Cancer Warts Measles Chicken pox bronchitis acute Surgical History Surgery Date(Month/Year) 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
== END 2024-02-22 06:13 | disposition home or self-care (01) ==
LOC: HO.NEURO 06:12
PROVIDERS: Visit Provider Registered Nurse Emergency
DX: R20.2 Paresthesia of skin (principal)
CPT/HCPCS: 95886; 95910

== ENCOUNTER 2024-02-24 15:30 | Outpatient (AMB) | payer BC, SELFPAY ==
--- NOTE | 2024-02-24 15:43 | A.OFFVIS_ITS ---
Vital Signs 02/24/24 15:46 Height 5 ft 6 in Weight 127 lb BMI 20.5 BP 118/78 Blood Pressure Location Rt brachial Position Sitting Pulse 75 Pulse Source Pulse Oximeter Pulse Oximetry (%) 100 Oxygen Delivery Method Room Air Intake Visit Reasons: Discuss EMG Results Intake Note: Pain today 1/10 Recreation Attendant Supervisor Required: No Accompanied by: Spouse Allergies metronidazole [Flagyl] Allergy (Unknown, Verified 02/24/24 15:47) Rash Sulfa Drugs Allergy (Unknown, Uncoded 01/19/23 14:10) Fatigued HPI Comments Details: Patient presents back to the office today for follow-up, review recent EMG EMG reviewed, results as per below Patient recently completed physical therapy. She reports positive results. Continues with home exercise program as instructed with good effect Pain today is 1/10. Endorses minimal burning to the right forearm. Manageable at this time. Prior: Marcia is a very pleasant 53-year-old female who presents to the office today for evaluation management of her right arm pain Patient underwent MRI with IV contrast 2 months ago with repeat MRI with contrast 1 month ago After the 1st MRI she developed pain, numbness, tingling and hot/cold sensations of the right arm from the elbow into the hand. pain significantly worsened after the 2nd MRI with contrast For the MRI an IV was inserted in the right antecubital, she was positioned prone for 40 minutes where pressure was placed directly on IV and her a ntecubital fossa After the MRI was completed she noticed the alteration in sensation and aching pain in her right elbow Pain today is rated as a 4/10, constant Pain at Olecranon with radiation down the arm across the top of the hand and up the medial aspect of the arm to the axilla Denies pain in the neck Patient has been taking ibuprofen without improvement of her symptoms. Heat helps for a short amount of time. She has not tried physical therapy, chiropractor, acupuncture, massage or injections. She was given gabapentin by her primary care doctor but she has it started. She read the insert and is nervous because of all the potential side effects therefore she has decided to manage the pain without prescription medication. She states it is tolerable at this time and she will consider starting the medication if he gets worse. In terms of muscle damage condition is described as aching, tingling, dull, numb, pins and needles Pain is negatively impacting patient's general activity, sleep PFSH Medical History (Updated 12/03/23 @ 08:37 by Michelle Damico APRN, [employer]INE OPERATOR) Liver lesion History of breast cancer Chest discomfort Allergy to mold Bronchitis Asthma Surgical History (Updated 11/18/23 @ 08:47 by Swathi Echevarria) H/O myringotomy History of lumpectomy of left breast Social History (Updated 04/07/22 @ 11:06 by VALARIE Naik) Patient Tobacco Use Status: Never used Tobacco Review of Systems Const All systems reviewed & are unremarkable except as noted in HPI and below Physical Exam Vital Signs: Last Vital Signs Pulse 75 02/24/24 15:46 BP 118/78 02/24/24 15:46 Pulse Ox 100 02/24/24 15:46 Oxygen Delivery Method Room Air 02/24/24 15:46 BMI result Body Mass Index 20.5 General: awake, alert, oriented. Answers questions appropriately. Fully engaged in examination. Skin: warm, dry, intact HEENT: Normocephalic. Hearing intact. Cardiac: External chest normal in appearance. Respiratory: No cough, audible wheezing or stridor. Abdomen: without gross distension. MS: No obvious swelling or deformities. Neurological: Oriented to person, place, time and situation. Thought process intact. No gait abnormalities appreciated. Psychiatric: Appropriate mood and affect. Good judgment and insight. Results Reviewed Results Reviewed: 02/22/24 EMG Right median and ulnar motor and sensory studies were performed. Right radial sensory and median and lateral antecubital brachial sensory studies were performed and paraspinal muscles were tested with a needle. IMPRESSION: 1. Mild right median neuropathy across carpal tunnel. 2. Mild right ulnar nerve slowing across elbow. Assessment & Plan Assessment & Plan (1) Arm paresthesia, right: Code(s): R20.2 - Paresthesia of skin Category: Medical Plan Marcia presented to the office today for follow-up, review of recent EMG EMG reviewed, results as per above Recommend elbow brace for ulnar neuropathy. Patient will look online for options. Discussed option for treatment including right ultrasound-guided diagnostic supraclavicular nerve block with local anesthetic. If positive results plan for right supraclavicular sprint PNS. Patient would like to hold off on interventional management at this time. She will call the office if pain wo rsens and she wants to proceed. All questions and concerns were answered, patient agrees with the plan. Follow up as needed. Coding Level of Care Code Est Pt Level 3 (56363) Complex EM visit Add On G2211 Diagnoses Arm paresthesia, right R20.2
[2024-02-24 15:46] VITALS: BP 118/78; PULSE 75; O2SAT 100; BMI 20.5
== END 2024-02-24 16:01 | disposition home or self-care (01) ==
PROVIDERS: Visit Provider Registered Nurse Emergency
DX: R20.2 Paresthesia of skin (principal)
CPT/HCPCS: 99213